=== PATIENT | male | born 1935 | race Caucasian/White ===

== ENCOUNTER 2019-08-13 22:27 | Inpatient (IN) | payer MEDICARE, OTHER ==
[~2019-08-13] VITALS: Ht 182.9 cm; Wt 73.8 kg
[~2019-08-13 22:27] MED LIST: EYE GTTS; KEFLEX500 MG OR; LORTAB5 OR; NO; PERCOCET 5/325M1 TAB PO; TRIAMCINOLON0.11 EX
--- NOTE | 2019-08-13 22:42 | NUR ---
TO TX ROOM VIA W/C
[2019-08-13] MEDS ORDERED: MINOCYCLINE HC100 MG PO (22:43)
[2019-08-13 23:27] LABS: HEMATOCRIT 40.4 % (39.0-50.0); HEMOGLOBIN 13.9 g/dl (14.0-18.0); IMMATURE GRANULOCYTES 0.2 % (0.0-5.0); MEAN CELL VOLUME 93.1 fL CALC (80.0-100.0); MEAN CORPUSCULAR HGB CONC 34.4 g/L CALC (32.0-36.0); NEUT# 5.29 thou/uL (1.82-7.42); RED BLOOD COUNT 4.34 mill/uL (4.70-6.10); RED CELL DISTRI WIDTH 13.9 % (11.5-15.5)
--- NOTE | 2019-08-13 23:30 | NUR ---
PT STILL HAVING ABD PAIN DR Diaz INFORMED AND PT MEDICATED NO VOMITING
[2019-08-13 23:45] LABS: ALBUMIN 4.1 g/dL (3.2-5.0); ALKALINE PHOSPHATASE 100 u/l (38-126); AMYLASE 110 u/l (30-110); ANION GAP 13 (6-22 (CALC)); BILIRUBIN, TOTAL 1.6 mg/dL (0.0-1.4); BUN 19 mg/dL (8-23); BUN/CREATININE RATIO 22 (12-20 (CALC)); CARBON DIOXIDE 26 mmol/l (22-30); CHLORIDE 104 mmol/l (95-108); CREATININE 0.8 mg/dL (0.7-1.3); GFR > 60 ML/MIN (>=60 (CALC)); GFR FOR AFR.AMER. > 60 ML/MIN (>=60 (CALC)); LIPASE 228 u/l (23-300); POTASSIUM 4.1 mmol/l (3.5-5.1); SGOT/AST 23 u/l (19-48); SODIUM 140 mmol/l (137-146); TOTAL PROTEIN 7.1 g/dL (6.3-8.2)
[2019-08-13 23:56] LABS: MYOGLOBIN 43 ng/mL (0 - 121)
--- NOTE | 2019-08-14 | NUR ---
PAIN HAS LESSENED SOMEWHAT TO 7 ON SCALE NO NAUSEA OR VOMITING W/P/D SKIN SR WITH NO ECTOPY
--- NOTE | 2019-08-14 00:30 | NUR ---
PT STILL RATING ABD PAIN AT 8 DR Diaz INFORMED AND PT REMEDICATED NO N/V
--- NOTE | 2019-08-14 01:40 | NUR ---
PT REMEDICATED FOR ABD PAIN REMEDICATED
[2019-08-14 01:45] LABS: URINE BLOOD DIPSTICK NEGATIVE (NEGATIVE); URINE COLOR YELLOW; URINE GLUCOSE - DIPSTICK NEGATIVE (NEGATIVE); URINE KETONE NEGATIVE (NEGATIVE); URINE LEUK ESTERASE NEGATIVE (NEGATIVE); URINE NITRITE - DIPSTICK NEGATIVE (Negative); URINE PH 5.5 (4.5-8.0); URINE PROTEIN - DIPSTICK TRACE mg/dL (NEG-TRACE); URINE SPECIFIC GRAVITY >=1.030
[2019-08-14 01:46] LABS: URINE BILIRUBIN - DIPSTICK NEGATIVE (NEGATIVE)
--- NOTE | 2019-08-14 02:35 | NUR ---
SM SKIN ABRASION FROM ABRASION WOUND EVENT 2 DAYS R FOREARM CLEANSED WITH NSS AND REDRESSED WITH NONADHERING STERILE GAUZE NEOSPORIN OINT AND ROLL GAUZE OUTER WRAP
--- NOTE | 2019-08-14 02:50 | NUR ---
PHONE REPORT TO NURSE GRUBBS ON MS
--- NOTE | 2019-08-14 02:55 | NUR ---
PT TRANSPORTED TO SC RM 272 IN STABLE CONDITION
--- NOTE | 2019-08-14 03:50 | NUR ---
PHONE REPORT TO NURSE KEITH
--- NOTE | 2019-08-14 03:56 | NUR ---
PT TRANSPORTED TO ID RM 270
--- NOTE | 2019-08-14 03:56 | NUR ---
PT TO MS RM 270 IN STABLE CONDITION
[2019-08-14 04:03] VITALS: BP 130/81
--- NOTE | 2019-08-14 04:05 | NUR ---
PT ARRIVED TO FLOOR VIA WC ACCOMPANIED BY ED NURSE. PT APPEARS TO BE IN STABLE CONDITION AND SELF AMBULATED TO STANDING SCALE AND TO THE BED. PT IS BEING ORIENTED TO ROOM,CALL SYSTEM, BED, LIGHTS AND TV. V/S ASSESSED AT THIS TIME. IVF REPLENISHED AT THIS TIME @125 ORDERS PROVIDE.
--- NOTE | 2019-08-14 04:55 | NUR ---
SOAP SUDS ENEMA ADMINISTERED AT THIS TIME. MALT [employer]QUORS SALES SUPERVISOR AND AIDE IN W/PT, PT TOLERATED WELL AND IS NOW SITTING ON BSC. CALL LIGHT W/IN REACH AND PT INSTRUCTED TO CALL NEEDS ARISE. WILL CONTINUE TO MONITOR.
--- NOTE | 2019-08-14 05:15 | NUR ---
LARGE SOFT STOOL W/STOOL BROWN COLORED LIQUID OUTPUT. PT CLEANED OF STOOL AND REALIZED HE NEEDED TO CONTINUE SITTING ON BSC. CALL LIGHT W/IN REACH AND PT INSTRUCTED TO CALL WHEN FINISHED OR PRIOR TO GETTING UP.
--- NOTE | 2019-08-14 05:25 | NUR ---
PT ASSISTED BY AIDE BACK TO BED.
--- NOTE | 2019-08-14 06:00 | NUR ---
PT ASSISTED TO BSC AND BACK TO BED. MODERATE AMOUNT OF LOOSE STOOL W/SMALL AMOUNTS OF FORMED CLUMPS. BROWN STOOL.
[2019-08-14 07:29] VITALS: BP 113/66
--- NOTE | 2019-08-14 08:30 | NUR ---
ASSESSMENT DONE. PT IS A&O X3. PT STATED PAIN IN ABD 05/28. PT IS NPO. IVF INFUSING WELL. TELE IN PLACE. NOTIFIED PT THAT I WILL NOTIFIED CHEMICAL ENGRAVER RE: HIS PAIN BECAUSE NO PAIN MEDICATION DUE. PT DENIES ANY OTHER NEEDS AT THIS TIME. CALL LIGHT IN REACH.
[2019-08-14 11:04] VITALS: BP 136/76
--- NOTE | 2019-08-14 11:20 | NUR ---
PT IS ON HIS LEFT SIDE. SOAP SUDS ENEMA APPLIED. PT TOLERATED WELL. IN ROOM. CALL LIGHT IN REACH. NOTIFIED IWONA SIDDIQUI RE: PT ABD PAIN. INFUSION PHARMACIST STATED NO MORE SOAP SUDS ENEMA AT THIS TIME.
--- NOTE | 2019-08-14 14:15 | NUR ---
NG TUBE PLACE ON LEFT NARE. PLACEMENT VERTIFY. SMALL AMOUNT OF YELLOW FLUID NOTED IN NG TUBE. IN ROOM. CALL LIGHT IN REACH.
--- NOTE | 2019-08-14 14:40 | NUR ---
CALL MADE TO FOR CONSULTATION, MD STATES HE WILL SEE PT TOMORROW.
[2019-08-14 15:59] VITALS: BP 153/77
--- NOTE | 2019-08-14 16:35 | NUR ---
PT IS SLEEPING IN BED WITH NO S/S OF DISTRESS NOTED. CALL LIGHT IN REACH.
--- NOTE | 2019-08-14 17:00 | NUR ---
PT VOMITED 50 ML COLOR GREEN. NG TUBE IN PLACE. NOTIFIED IWONA SIDDIQUI. ORDERS RECEIVED.
--- NOTE | 2019-08-14 17:08 | NUR ---
NOTIFIED DR. HERNANDEZ RE: PT CT RESULTS AND DR. MATA WILL BE COMING TOMORROW TO SEE PT.
--- NOTE | 2019-08-14 17:37 | NUR ---
ASSISTED PT TO SIT IN THE RECLINER. NG TUBE IN PLACE. MEDICATED PT WITH MORPHINE AND ZOFRAN. CALL LIGHT IN REACH.
[2019-08-14 19:37] VITALS: BP 127/72
--- NOTE | 2019-08-14 19:46 | NUR ---
pt sitting in recliner, visitor just leaving. ntb placement confirmed W/NO RESIDUAL, PLACED TO LIS. PT ASSISTED TO BSC TO SIT W/CALL LIGHT W/IN REACH.
--- NOTE | 2019-08-14 19:55 | NUR ---
PT ASSISTED BACK TO BED AND MEDICATION SCHEDULE DISCUSSED W/PT. PT REPORTS PAIN 10/10 TO THE UPPER ABD AND SOME NAUSEA REPORTED. NO VOMITING AT THIS TIME. NGT SET AT LIS W/GREEN OUTPUT. WILL CONTINUE TO MONITOR.
--- NOTE | 2019-08-14 20:36 | NUR ---
PHYSICIAN NOTIFIED OF PT PAIN/DISTRESS, NEW ORDERS RECEIVED. PT CALLED FOR ASSISTANCE AND FOUND TO BE VOMITING, 150CC OF GREEN EMESIS OUTPUT NOTED AT THIS TIME. COOLCLOTHS PROVIDED FOR COMFORT AND MOUTHSWABS. PT RESTING AT THIS TIME.
--- NOTE | 2019-08-14 22:19 | NUR ---
PT MEDICATED ORDERS PROVIDE FOR PAIN IN UPPER ABD AND BACK. NGT DRAINING GREEN FLUID TO LIS. CALL LIGHT IS AT PTS SIDE AND PT ENCOAURGED TO CALL IF ANY NEEDS ARISE.
--- NOTE | 2019-08-14 23:58 | NUR ---
PT MEDICATED W/IV ANTIBIOTIC THERAPY AT THIS TIME. PT REPORTS FEELING "100% BETTER THAN EARLIER" STATING THE "MEDICATION WORKED." NGT SET TO LIS W/MINIMAL GREEN OUTPUT.
[2019-08-15] VITALS (7 sets, daily range): BP systolic 114–139; BP diastolic 55–79
--- NOTE | 2019-08-15 01:03 | NUR ---
PT APPEARS TO BE RESTING COMFORTABLY AT THIS TIME. WILL CONITNUE TO MONITOR.
--- NOTE | 2019-08-15 02:45 | NUR ---
PT SLEEPING IN HIGH FOWLERS POSITION. NO S/O DISTRESS NOTED. CALL LIGHT W/IN REACH.
--- NOTE | 2019-08-15 04:57 | NUR ---
PT UP TO BSC AND BACK TO BED. PT C/O PAIN IN UPPER ABD 10/10, MEDICATED AT THIS TIME. PT ASSISTED BACK UP TO BSC REPORTS FEELING LIKE HE NEEDS TO HAVE BM.
--- NOTE | 2019-08-15 05:05 | NUR ---
PLACEMENT OF NGT CONFIRMED W/NO RESIDUAL. PLACED TO LIS. PT MEDICATED FOR PAIN 10/10 IN UPPER ABD. ABD IS DIST FIRM AND EXTREMELY TENDER TO TOUCH. SSE ADMINISTERED AT THIS TIME, PT TOLERATED WELL AND IS UP TO BSC AT THIS TIME. WILL CONTINUE TO MONITOR CLOSELY, CALL LIGHT W/IN REACH AND PT INSTRUCTED TO CALL PRIOR TO GETTING UP/VERBALIZED UNDERSTANDING.
[2019-08-15 05:22] LABS: HEMATOCRIT 40.1 % (39.0-50.0); HEMOGLOBIN 13.6 g/dl (14.0-18.0); MEAN CELL VOLUME 94.1 fL CALC (80.0-100.0); MEAN CORPUSCULAR HGB 31.9 pG CALC (26.0-32.0); MEAN CORPUSCULAR HGB CONC 33.9 g/L CALC (32.0-36.0); RED BLOOD COUNT 4.26 mill/uL (4.70-6.10); RED CELL DISTRI WIDTH 14.1 % (11.5-15.5)
[2019-08-15 05:42] LABS: ALBUMIN 3.4 g/dL (3.2-5.0); ALKALINE PHOSPHATASE 90 u/l (38-126); ANION GAP 12 (6-22 (CALC)); BILIRUBIN, TOTAL 1.5 mg/dL (0.0-1.4); BUN 15 mg/dL (8-23); BUN/CREATININE RATIO 22 (12-20 (CALC)); CARBON DIOXIDE 27 mmol/l (22-30); CHLORIDE 104 mmol/l (95-108); CREATININE 0.7 mg/dL (0.7-1.3); GFR > 60 ML/MIN (>=60 (CALC)); GFR FOR AFR.AMER. > 60 ML/MIN (>=60 (CALC)); SGOT/AST 23 u/l (19-48); SODIUM 138 mmol/l (137-146)
--- NOTE | 2019-08-15 05:57 | NUR ---
PT MEDICATED ORDERS PROVIDE AND PT RESTING IN BED W/EYES CLOSED. NO S/O DISTRESS AT THIS TIME. OUTPUT OF STOOL IN RESPONSE TO SSE UP TO THIS TIME 1100CC OF LIGHT BROWN WATERY STOOL.
--- NOTE | 2019-08-15 11:49 | NUR ---
PT C/O PAIN 07/28 - MEDICATED PER PRN ORDERS; NG TUBE REMOVED - PT TOLERATED WELL. 50 CC GREEN FLUID OUTPUT THIS SHIFT; PT CONTINUES WITH NAUSEA.
--- NOTE | 2019-08-15 12:30 | NUR ---
SPOKE WITH PRACTITIONER REGARDING CONTINUED NAUSEA AND EMESIS X1. PT NOT ATTEMPTING CLEAR LIQUIDS DUE TO NAUSEA. REGLAN ADDED. WILL CONTINUE TO MONITOR.
--- NOTE | 2019-08-15 17:30 | NUR ---
PT REPORTS PAIN 4/10 -RESTS INTERMITTENTLY WITH EYES CLOSED WHILE OOB TO CHAIR. PT CONTINUES WITH NAUSEA AND VOMITING. CONTINUING ZOFRAN AND REGLAND ORDERED.
--- NOTE | 2019-08-15 19:10 | NUR ---
REPORT RECEIVED FROM DARIO MEEK. PT RESTING IN RECLINER. NO S/S OF DISTRESS AT THIS TIME. SAFETY PRECAUTIONS IN PLACE. WILL CONTINUE TO MONITOR.
--- NOTE | 2019-08-15 19:45 | NUR ---
PT RESTING IN RECLINER. RESPIRATIONS EVEN AND UNLABORED ON RA. LUNGS SOUND CLEAR. PEDAL PULSES ARE STRONG. PT REPORTS PAIN OF A 10/10 IN HIS ABD. PT TO BE MEDICATED. TELE IN PLACE. ASSISTED PT INTO BED FROM RECLINER, STEADY GATE. WILL CONTINUE TO MONITOR.
--- NOTE | 2019-08-16 00:05 | NUR ---
PT RESTING IN BED. RESPIRATIONS EVEN AND UNLABORED ON RA. NO S/S OF DISTRESS AT THIS TIME. TELE IN PLACE. WILL CONTINUE TO MONITOR.
[2019-08-16 04:43] VITALS: BP 146/73
--- NOTE | 2019-08-16 04:51 | NUR ---
PT RESTING IN BED WITH EYES CLOSED. TELE IN PLACE. NO S/S OF DISTRESS AT THIS TIME. RESPIRATIONS EVEN AND UNLABORED ON RA. WILL CONTINUE TO MONITOR.
[2019-08-16 05:08] LABS: HEMATOCRIT 38.2 % (39.0-50.0); HEMOGLOBIN 13.2 g/dl (14.0-18.0); IMMATURE GRANULOCYTES 0.4 % (0.0-5.0); MEAN CELL VOLUME 92.9 fL CALC (80.0-100.0); MEAN CORPUSCULAR HGB 32.1 pG CALC (26.0-32.0); MEAN CORPUSCULAR HGB CONC 34.6 g/L CALC (32.0-36.0); NEUT# 3.66 thou/uL (1.82-7.42); RED BLOOD COUNT 4.11 mill/uL (4.70-6.10); RED CELL DISTRI WIDTH 13.8 % (11.5-15.5)
[2019-08-16 05:27] LABS: ANION GAP 12 (6-22 (CALC)); BUN 13 mg/dL (8-23); BUN/CREATININE RATIO 20 (12-20 (CALC)); CARBON DIOXIDE 25 mmol/l (22-30); CHLORIDE 104 mmol/l (95-108); CREATININE 0.7 mg/dL (0.7-1.3); GFR > 60 ML/MIN (>=60 (CALC)); GFR FOR AFR.AMER. > 60 ML/MIN (>=60 (CALC)); MAGNESIUM 1.7 mg/dL (1.6-2.3); POTASSIUM 4.1 mmol/l (3.5-5.1); SODIUM 137 mmol/l (137-146)
[2019-08-16 07:47] VITALS: BP 146/77
--- NOTE | 2019-08-16 08:07 | NUR ---
ASSESSMENT DONE. PT IS A&O X3 BUT HARD OF HEARING. PT STATED PAIN 10/10 IN ABD AND VOMITED 50 ML COLOR GREEN. MEDICATED PT WITH DILAUDID AND ZOFRAN. . TELE IN PLACE. PT DENIES ANY OTHER NEEDS AT THIS TIME. CALL LIGHT IN REACH. NOTIFIED IWONA GOLD RE: PT PAIN AND VOMITED.
--- NOTE | 2019-08-16 10:38 | NUR ---
I SPOKE WITH DELMI ISSA FROM DR. GONZALEZ OFFICE @1036 AM ABOUT THE CONSULTATION ORDERED FOR ABDOMINAL PAIN. I CALLED [facility] [phone]
[2019-08-16 10:59] VITALS: BP 139/42
--- NOTE | 2019-08-16 11:27 | NUR ---
PT IS SITTING IN RECLINER AND AT SIDE. PT STATED PAIN IN ABD. MEDICATED PT WITH MORPHINE. CALL LIGHT IN REACH.
--- NOTE | 2019-08-16 11:55 | NUR ---
DR. BERGMAN IN ROOM TO DISCUSS POC WITH PT AND . PT VOMITED.
[2019-08-16 15:25] VITALS: BP 146/71
--- NOTE | 2019-08-16 16:05 | NUR ---
PT IS SITTING IN RECLINER VISITING IN ROOM WITH . NO S/S OF DISTRESS NOTED. PT DENIES ANY NEEDS AT THIS TIME. CALL LIGHT IN REACH.
--- NOTE | 2019-08-16 19:10 | NUR ---
REPORT RECIEVED FROM DARIO HOFFMAN. PT RESTING IN RECLINER. NO S/S OF DISTRESS AT THIS TIME. SAFETY PRECAUTIONS IN PLACE. WILL CONTINUE TO MONITOR.
[2019-08-16 19:13] VITALS: BP 138/72
--- NOTE | 2019-08-16 19:35 | NUR ---
PT RESTING IN RECLINER. ALERT AND ORIENTED. RESPIRATIONS EVEN AND UNLABORED ON RA. LUNGS SOUND CLEAR. PEDAL PULSES ARE STRONG. PT DENIES ANY PAIN OR DISCOMFORT AT THIS TIME. TELE IN PLACE. PT AMBULATED TO BATHROOM WITH A STEADY GATE PT ENCOURAGED TO CALL FOR ASSISTANCE WHEN FINISHED. SAFETY PRECAUTIONS IN PLACE. WILL CONTINUE TO MONITOR.
[2019-08-16 23:36] VITALS: BP 128/65
[2019-08-17] VITALS (11 sets, daily range): BP systolic 123–180; BP diastolic 69–87
--- NOTE | 2019-08-17 01:00 | NUR ---
PT RESTING IN BED. RESPIRATIONS EVEN AND UNLABORED ON RA. TELE IN PLACE. CALL SHOEMAKER WITHIN REACH. WILL CONTINUE TO MONITOR.
--- NOTE | 2019-08-17 04:00 | NUR ---
PT RESTURNING TO BED FROM THE RESTROOM, GATE STEADY. RESPIRATIONS EVEN AND UNLABORED. NO S/S OF DISTRESS AT THIS TIME. WILL CONTINUE TO MONTIOR.
[2019-08-17 04:56] LABS: HEMATOCRIT 35.4 % (39.0-50.0); HEMOGLOBIN 12.4 g/dl (14.0-18.0); IMMATURE GRANULOCYTES 0.2 % (0.0-5.0); MEAN CELL VOLUME 91.2 fL CALC (80.0-100.0); NEUT# 3.53 thou/uL (1.82-7.42); RED BLOOD COUNT 3.88 mill/uL (4.70-6.10); RED CELL DISTRI WIDTH 13.4 % (11.5-15.5)
[2019-08-17 05:11] LABS: ANION GAP 12 (6-22 (CALC)); BUN 8 mg/dL (8-23); BUN/CREATININE RATIO 11 (12-20 (CALC)); CARBON DIOXIDE 26 mmol/l (22-30); CHLORIDE 102 mmol/l (95-108); CREATININE 0.7 mg/dL (0.7-1.3); GFR > 60 ML/MIN (>=60 (CALC)); GFR FOR AFR.AMER. > 60 ML/MIN (>=60 (CALC)); POTASSIUM 3.7 mmol/l (3.5-5.1); SODIUM 136 mmol/l (137-146)
--- NOTE | 2019-08-17 08:00 | NUR ---
PT SEEN AWAKE, ALERT, ORIENTED X 3, WEAK. PT SHOWERED FIRST THING THIS MORNING, NOW SEEN OOB INTO CHAIR. NO COMPLAINTS OF SHORTNESS OF BREATH OR CHEST PAIN. VSS.
--- NOTE | 2019-08-17 12:00 | NUR ---
PT ALLOWED LIQUID DIET AFTER SEEN BY DR BERGMAN THIS MORNING. PLAN IS TO HAVE EGD IN AM. PT AGREEABLE. ABDOMEN REMAINS TENDER TO THE TOUCH.
--- NOTE | 2019-08-17 14:34 | NUR ---
PT SEEN BY TELEMETRY TO HAVE APPROXIMATELY 5 SECOND PAUSE. PT IS ASYMPTOMATIC. NILAY HURTADO AND CAESAR FROM DR CLEMENT'S OFFICE HAVE VIEWED TELEMETRY STRIPS. PT AWARE OF PENDING TRANSFER TO ICU FOR CLOSER MONITORING.
--- NOTE | 2019-08-17 14:44 | NUR ---
male pt received to ICU bed 2 via wc accompanied by Domenic Conde RN in stable condition; ambulatory to bed with steady gait; assessment completed at this time; pt alert and oriented; admits to abd pain rating 10/10; no n/v; resp even and unlabored; lungs clear; skin color wnl; ra; hr irreg; pedal pulses present; trace edema noted to bilat lower legs; afib 40s-50s on monitor; abd soft/tender with bs hyperactive; no bm noted per tech writer; no urine to inspect at this time; urinal at bedside; #22 flushed and patent to lac; ivf infusing without complication; no redness or edema noted at site; dressing cdi to lfa/wrist; plan of care/ reasoning for transfer/ afib/ bradycardia explained; pt agree to transfer to [facility] if needed; call light within reach; will continue ot monitor
--- NOTE | 2019-08-17 15:02 | NUR ---
NILAY Wren called in regards to pt complaints of pain and bradycardia; approval to medicate with pain meds received; S[facility]a also informed pt has been refusing Carafate (due to liquid) and pt willing to try Carafate pills; orders to be placed;
--- NOTE | 2019-08-17 15:23 | NUR ---
called received from Bogdan Koo; requested vital signs given; pt current afib 64 on monitor; lowest rate noted since transfer was afib 39; awaiting bed assignment
--- NOTE | 2019-08-17 15:32 | NUR ---
[facility] called this information writer; U bed 316 recevied; report to be called to [phone]
--- NOTE | 2019-08-17 15:56 | NUR ---
[facility] Samira called per loan underwriter; transfer information provided; ETA [id number]
--- NOTE | 2019-08-17 16:04 | NUR ---
Dr Lopez called per staff in regards to being transferred to [facility]/ EGD schedule for first case in am
--- NOTE | 2019-08-17 16:25 | NUR ---
report called to LORRAINE Sotelo; direct number to this senior underwriter provided for any additional information needed
--- NOTE | 2019-08-17 16:45 | NUR ---
report given to WC transport; pt discharged with WC transport in stable condition; pt belongings sent with pt; visitor x2 departed with pt
== END 2019-08-17 16:45 | DRG 390 ==
LOC: ED 22:27 → ED-I 08-14 01:55 → ED 08-14 02:12 → MS2 08-14 02:13 → ICU 08-17 14:44
PROVIDERS: Emergency Medicine; Nurse Practitioner Family; ADMIT Internal Medicine; ATTEND Internal Medicine
DX: K56.609 Unspecified intestinal obstruction, unspecified as to partial versus complete obstruction (principal); I48.91 Unspecified atrial fibrillation; I49.5 Sick sinus syndrome; R10.13 Epigastric pain; Z92.3 Personal history of irradiation; Z92.21 Personal history of antineoplastic chemotherapy; Z90.49 Acquired absence of other specified parts of digestive tract; Z91.14 Patient's other noncompliance with medication regimen
CPT/HCPCS: J1650; J3475; Q9967; S0164

== ENCOUNTER 2019-09-14 13:08 | Observation (INO) | payer MEDICARE, OTHER ==
[~2019-09-14] VITALS: Ht 182.9 cm; Wt 69.9 kg
[~2019-09-14 13:08] MED LIST changes: +MINOCYCLINE HC100 MG PO
[2019-09-14] MEDS ORDERED: LOPRESSOR50 M2 PO (13:31)
[2019-09-14] MEDS ORDERED: ELIQUIS5 MG PO (13:32)
[2019-09-14] MEDS ORDERED: COLACE100 MG PO (13:32)
[2019-09-14 13:48] LABS: HEMATOCRIT 33.1 % (39.0-50.0); HEMOGLOBIN 11.1 g/dl (14.0-18.0); IMMATURE GRANULOCYTES 0.1 % (0.0-5.0); MEAN CELL VOLUME 93.2 fL CALC (80.0-100.0); MEAN CORPUSCULAR HGB 31.3 pG CALC (26.0-32.0); MEAN CORPUSCULAR HGB CONC 33.5 g/L CALC (32.0-36.0); NEUT# 4.89 thou/uL (1.82-7.42); RED BLOOD COUNT 3.55 mill/uL (4.70-6.10); RED CELL DISTRI WIDTH 13.7 % (11.5-15.5)
[2019-09-14 14:04] LABS: ALKALINE PHOSPHATASE 102 u/l (38-126); ANION GAP 12 (6-22 (CALC)); BILIRUBIN, TOTAL 1.5 mg/dL (0.0-1.4); BUN 12 mg/dL (8-23); BUN/CREATININE RATIO 18 (12-20 (CALC)); CARBON DIOXIDE 27 mmol/l (22-30); CHLORIDE 101 mmol/l (95-108); CREATININE 0.7 mg/dL (0.7-1.3); GFR > 60 ML/MIN (>=60 (CALC)); GFR FOR AFR.AMER. > 60 ML/MIN (>=60 (CALC)); POTASSIUM 4.2 mmol/l (3.5-5.1); SGOT/AST 25 u/l (19-48); SODIUM 136 mmol/l (137-146)
[2019-09-14 14:11] LABS: TOTAL PROTEIN 7.6 g/dL (6.3-8.2)
[2019-09-14 18:20] VITALS: BP 125/57
[2019-09-14 23:26] VITALS: BP 106/58
[2019-09-15 04:36] VITALS: BP 102/61
[2019-09-15 07:41] VITALS: BP 103/50
[2019-09-15 16:00] VITALS: BP 93/60
[2019-09-15 19:42] VITALS: BP 101/54
[2019-09-16 01:17] VITALS: BP 99/59
[2019-09-16 04:18] VITALS: BP 99/56
[2019-09-16 05:42] LABS: HEMATOCRIT 31.2 % (39.0-50.0); HEMOGLOBIN 10.7 g/dl (14.0-18.0); IMMATURE GRANULOCYTES 0.2 % (0.0-5.0); MEAN CORPUSCULAR HGB 31.6 pG CALC (26.0-32.0); MEAN CORPUSCULAR HGB CONC 34.3 g/L CALC (32.0-36.0); NEUT# 3.74 thou/uL (1.82-7.42); RED BLOOD COUNT 3.39 mill/uL (4.70-6.10); RED CELL DISTRI WIDTH 13.4 % (11.5-15.5)
[2019-09-16 05:43] LABS: URINE BILIRUBIN - DIPSTICK NEGATIVE (NEGATIVE); URINE BLOOD DIPSTICK NEGATIVE (NEGATIVE); URINE COLOR YELLOW; URINE GLUCOSE - DIPSTICK NEGATIVE (NEGATIVE); URINE KETONE NEGATIVE (NEGATIVE); URINE LEUK ESTERASE NEGATIVE (NEGATIVE); URINE NITRITE - DIPSTICK NEGATIVE (Negative); URINE PH 6.5 (4.5-8.0); URINE PROTEIN - DIPSTICK NEGATIVE (NEG-TRACE); URINE SPECIFIC GRAVITY 1.015; URINE UROBILINOGEN - DIPSTICK 0.2 E.U./dL (0.2)
[2019-09-16 05:58] LABS: ANION GAP 12 (6-22 (CALC)); BUN 16 mg/dL (8-23); BUN/CREATININE RATIO 23 (12-20 (CALC)); CARBON DIOXIDE 27 mmol/l (22-30); CHLORIDE 100 mmol/l (95-108); CREATININE 0.7 mg/dL (0.7-1.3); GFR > 60 ML/MIN (>=60 (CALC)); GFR FOR AFR.AMER. > 60 ML/MIN (>=60 (CALC)); MAGNESIUM 1.8 mg/dL (1.6-2.3); POTASSIUM 4.1 mmol/l (3.5-5.1); SODIUM 135 mmol/l (137-146)
[2019-09-16 08:10] VITALS: BP 129/64
[2019-09-16 11:05] VITALS: BP 95/50
[2019-09-16 15:32] VITALS: BP 107/64
== END 2019-09-16 18:48 | disposition home or self-care (01) ==
LOC: ED 13:08 → ED-I 15:24 → ED 16:00 → ED-I 16:01 → MS2 16:01
PROVIDERS: Nurse Practitioner Family; ADMIT Internal Medicine; ATTEND Internal Medicine
DX: I50.9 Heart failure, unspecified (principal); I48.91 Unspecified atrial fibrillation; M54.2 Cervicalgia; Z95.0 Presence of cardiac pacemaker; Z85.038 Personal history of other malignant neoplasm of large intestine; Z90.49 Acquired absence of other specified parts of digestive tract; Z85.118 Personal history of other malignant neoplasm of bronchus and lung; Z92.3 Personal history of irradiation; Z92.21 Personal history of antineoplastic chemotherapy; R06.02 Shortness of breath
CPT/HCPCS: G0378; Q9967